=== PATIENT | male | born 1990 ===

== ENCOUNTER 2017-12-21 06:32 | Emergency (ER) | payer OTHER ==
[2017-12-21 06:52] VITALS: RESP 18; TEMP 96.3
[2017-12-21] MEDS ORDERED: Bacitracin 500 Units/gm Oint Foilpak UD TOP STA (07:23)
--- NOTE | 2017-12-21 07:28 | ED PDOC ---
Arrival/HPI - General Chief Complaint: Upper Extremity Problem/Injury Time Seen by Provider: 12/21/17 07:03 Historian: Patient - History of Present Illness Narrative History of Present Illness (Text): you were treated in the ED today for accidental door injury with cut to the left hand and otherwise without any nausea/vomiting/headache/dizziness/ difficulty breathing/chest pain/abdomen pain/numbness/tingling/loss of limb function/pain with urination. Time/Duration: 4-6 hours Symptom Onset: Sudden Symptom Course: Improving Quality: Aching Severity Level: 1 Activities at Onset: Rest Context: Sitting Past Medical History - Provider Review Nursing Documentation Reviewed: Yes - Travel History Have you recently traveled outside [place] w/in the past 3 mons?: No - Psychiatric Hx Substance Use: Yes Family/Social History - Physician Review Nursing Documentation Reviewed: Yes Family/Social History: No Known Family HX Smoking Status: Former Smoker Hx Alcohol Use: Yes Frequency of alcohol use: Daily Hx Substance Use: Yes Substance used: marijuana Allergies/Home Meds Allergies/Adverse Reactions: Allergies No Known Allergies Allergy (Verified 12/21/17 06:51) Review of Systems - Review of Systems Constitutional: Normal Eyes: Normal ENT: Normal Respiratory: Normal Cardiovascular: Normal Gastrointestinal: Normal Genitourinary Male: Normal Musculoskeletal: Other (cut to left hand) Skin: Laceration Neurological: Normal Endocrine: Normal Hemo/Lymphatic: Normal Psychiatric: Normal Physical Exam Vital Signs Reviewed: Yes Vital Signs Temp Pulse Resp BP Pulse Ox 12/21/17 06:46 96.3 F L 62 18 118/66 100 Temperature: Afebrile Blood Pressure: Normal Pulse: Regular Respiratory Rate: Normal Appearance: Positive for: Well-Appearing, Non-Toxic, Comfortable Pain Distress: None Mental Status: Positive for: Alert and Oriented X 3 - Systems Exam Head: Present: Atraumatic, Normocephalic Pupils: Present: PERRL Extroacular Muscles: Present: EOMI Conjunctiva: Present: Normal Ears: Present: Normal Mouth: Present: Moist Mucous Membranes Pharnyx: Present: Normal Nose (External): Present: Atraumatic Nose (Internal): Present: Normal Inspection Neck: Present: Normal Range of Motion Respiratory/Chest: Present: Clear to Auscultation, Good Air Exchange Cardiovascular: Present: Regular Rate and Rhythm Abdomen: No: Tenderness, Distention, Normal Bowel Sounds, Peritoneal Signs, Rebound, Guarding, McBurney's Point Tender, Rovsing's Sign Present, Hernias, Feeding Tubes, Ostomy Tubes, Mass/Organomegaly, Scars, Other Back: Present: Normal Inspection Upper Extremity: Present: Other ( left hand cut to the back of hand and mild discomfort over cut but no other bony or snuffbox tenderness and otherwise full range of motion/warm/pink/sensation/good radial pulses) Lower Extremity: Present: Normal Inspection Neurological: Present: GCS=15, CN II-XII Intact, Speech Normal, Motor Func Grossly Intact Skin: Present: Warm, Other (see UE) Psychiatric: Present: Alert, Oriented x 3, Normal Insight, Normal Concentration Medical Decision Making ED Course and Treatment: you were treated in the ED today for accidental door injury with cut to the left hand and otherwise without any nausea/vomiting/headache/dizziness/ difficulty breathing/chest pain/abdomen pain/numbness/tingling/loss of limb function/pain with urination. You were otherwise breathing easily, smiling adn talking easily, good strength/sensation, walking easily, clear lungs, no abdomen tenderness, left hand cut to the back of hand and mild discomfort over cut but no other bony tenderness and otherwise full range of motion/warm/pink/ sensation/good radial pulses, no fever temp 96.3, stable heart rate 62, stable breathing rate 18, excellent oxygen level 100% room air, stable blood pressure 118/66 which we recommend repeat in 2-3 days primary care office to determine further treatment, left hand xray radiology no acute findigns, motrin, keflex, wound ant-septic cleanse/suture/dressing, observation done in the ED with improvement, counselled to keep wound dry for 2 days, bacitracin ointment daily and can shower/soap to wound after 2 days but don't rub and can leave open to air after 2 days if dry and thus discharged home. 1. Recommend keflex as directed for infection prevention. 2. Recommend tylenol or motrin as directed for pain. 3. Recommend follow-up primary care 2-3 days to review symptoms, get final xray report, orthopedics referral as directed and then in 7 days for suture removal. 4. If any worsening pain, fever, chills, nausea, vomiting, difficulty breathing, numbness, loss of limb function, pain with urination or any medical condition then return to the ED. 12/21/17 07:29 12/21/17 09:19 procedure note: antiseptic cleans, local anesthesia - left hand laceration back of hand 8cm x 3 interrupted subdermal 4-0 vycril, x 8 ethilon interrupted and secondary 3cm x 3 interrupted ethilon closure, hemostasis, tolerated procedure. Reassessment Condition: Re-examined, Improved - RAD Interpretation Radiology Orders: 12/21/17 07:22 HAND LEFT 3 VIEWS ROUTINE [RAD] Stat - Medication Orders Current Medication Orders: Discontinued Medications Bacitracin (Bacitracin) 2 ea TOP STAT STA Stop: 12/21/17 07:24 Cephalexin Monohydrate (Keflex) 500 mg PO STAT STA PRN Reason: Protocol Stop: 12/21/17 07:24 Last Admin: 12/21/17 07:31 Dose: 500 mg Ibuprofen (Motrin Tab) 800 mg PO STAT STA Stop: 12/21/17 07:24 Last Admin: 12/21/17 07:31 Dose: 800 mg Disposition/Present on Arrival - Present on Arrival Any Indicators Present on Arrival: No History of DVT/PE: No History of Uncontrolled Diabetes: No Urinary Catheter: No History of Decub. Ulcer: No History Surgical Site Infection Following: None - Disposition Have Diagnosis and Disposition been Completed?: Yes Diagnosis: Hand laceration Disposition: HOME/ ROUTINE Disposition Time: 09:24 Patient Plan: Discharge Condition: IMPROVED Additional Instructions: you were treated in the ED today for accidental door injury with cut to the left hand and otherwise without any nausea/vomiting/headache/dizziness/ difficulty breathing/chest pain/abdomen pain/numbness/tingling/loss of limb function/pain with urination. You were otherwise breathing easily, smiling adn talking easily, good strength/sensation, walking easily, clear lungs, no abdomen tenderness, left hand cut to the back of hand and mild discomfort over cut but no other bony tenderness and otherwise full range of motion/warm/pink/ sensation/good radial pulses, no fever temp 96.3, stable heart rate 62, stable breathing rate 18, excellent oxygen level 100% room air, stable blood pressure 118/66 which we recommend repeat in 2-3 days primary care office to determine further treatment, left hand xray radiology no acute findigns, motrin, keflex, wound ant-septic cleanse/suture/dressing, observation done in the ED with improvement, counselled to keep wound dry for 2 days, bacitracin ointment daily and can shower/soap to wound after 2 days but don't rub and can leave open to air after 2 days if dry and thus discharged home. 1. Recommend keflex as directed for infection prevention. 2. Recommend tylenol or motrin as directed for pain. 3. Recommend follow-up primary care 2-3 days to review symptoms, get final xray report, orthopedics referral as directed and then in 7 days for suture removal. 4. If any worsening pain, fever, chills, nausea, vomiting, difficulty breathing, numbness, loss of limb function, pain with urination or any medical condition then return to the ED. Prescriptions: Cephalexin [cephalexin] 500 mg PO Q6 3 Days #12 cap Ibuprofen [Motrin Tab] 800 mg PO Q8 PRN 10 Days #30 tab PRN Reason: Pain, Mild (1-3) Forms: [facility] ([facility]), WORK NOTE
--- NOTE | 2017-12-21 09:14 | RAD ---
PROCEDURE: Left Hand Radiographs. HISTORY: 27M, left hand laceration COMPARISON: None. FINDINGS: BONES: Normal. No fracture. JOINTS: Normal. No osteoarthritic changes. SOFT TISSUES: No acute findings related to/accounting for the clinical presentation. OTHER FINDINGS: None. IMPRESSION: Soft tissue injury dorsal aspect of the hand. No osseous, articular abnormalities.
[2017-12-21] MEDS ORDERED: TDAP Vaccine 0.5 mL Syr IM ONE (09:34)
[2017-12-21 09:39] VITALS: BP 132/79; PULSE 60; O2SAT 98
== END 2017-12-21 09:43 | disposition home or self-care (01) ==
LOC: ED 06:32 → MERGE 06:32 → ED 09:43
DX: S61.412A Laceration without foreign body of left hand, initial encounter (principal); X58.XXXA Exposure to other specified factors, initial encounter; Z23 Encounter for immunization; Z87.891 Personal history of nicotine dependence